=== PATIENT | female | born 1965 | race Caucasian/White ===

== ENCOUNTER 2023-11-09 07:55 | Day surgery (SDC) | payer BC ==
[2023-11-02 14:21] VITALS: BMI 29.4
[2023-11-09 08:15] VITALS: RESP 16
[2023-11-09 10:34] VITALS: PULSE 81; TEMP 97.9
[2023-11-09 10:50] VITALS: BP 134/84
== END 2023-11-09 10:54 | disposition home or self-care (01) ==
LOC: FASU-ENDO 07:55
PROVIDERS: ATTEND Internal Medicine Gastroenterology
PROC: 0DB68ZX Excision of Stomach, Via Natural or Artificial Opening Endoscopic, Diagnostic (ICD-10-PCS; 2023-11-09)
PROC: 0DB98ZX Excision of Duodenum, Via Natural or Artificial Opening Endoscopic, Diagnostic (ICD-10-PCS; principal; 2023-11-09 10:12)
DX: K29.50 Unspecified chronic gastritis without bleeding (principal); K31.7 Polyp of stomach and duodenum; R12 Heartburn
CPT/HCPCS: 88305-TC; 88342-TC